=== PATIENT | female | born 1935 | race African-American/Black ===

== ENCOUNTER 2025-06-23 01:48 | Emergency (ER) | payer MEDICARE, SELFPAY ==
[2025-06-23] VITALS (15 sets, daily range): BP systolic 111–122; BP diastolic 62–76; PULSE 71; RESP 18; TEMP 36.8; O2SAT 96–100
[2025-06-23 02:25] LABS: Hematocrit 34.8 % (37.0-47.0); Hemoglobin 11.5 g/dL (12.0-15.0); Immature Granulocyte Percent A 0.3 % (0-0.5); Lymphocytes Absolute Auto 2.83 K/mm3 (0.9-3.2); Mean Corpuscular HGB Conc 33.0 g/dl (32-36); Mean Corpuscular Hemoglobin 28.8 pg (26-34); Mean Corpuscular Volume 87.0 fl (80-100); Nucleated Red Blood Cells Absolute Auto 0.000 K/mm3 (0.0-0.012); Nucleated Red Blood Cells Perc 0.0 % (0.0-0.2); Platelet Count Result 226 k/mm3 (150-375); Red Blood Count 4.00 M/mm3 (4.2-5.4); White Blood Count 7.2 K/mm3 (4.5-10.0)
[2025-06-23 02:39] LABS: Alanine Aminotransferase 18 U/L (6-35); Albumin Level 4.0 g/dL (3.5-5.1); Alkaline Phosphatase 105 U/L (38-126); Anion Gap 8 mmol/L (4-12); Aspartate Amino Transferase 42 U/L (14-36); Bilirubin,Total 0.7 mg/dL (0.2-1.3); Blood Urea Nitrogen 29 mg/dL (7-17); Calcium 9.8 mg/dL (8.4-10.2); Carbon Dioxide 21 mmol/L (22-30); Chloride 105 mmol/L (98-107); Estimated CRCL calculation 15 ml/min; Estimated Glomerular Filt Rate 21; Glucose 101 mg/dL (65-110); Lipase 160 U/L (23-300); Magnesium 2.2 mg/dL (1.6-2.3); Potassium 3.9 mmol/L (3.4-5.0); Sodium 134 mmol/L (137-145); Total Protein 7.9 g/dL (6.3-8.2)
--- NOTE | 2025-06-23 02:40 | ED_ITS ---
HPI - General Adult General Chief complaint: Nausea/Vomiting/Diarrhea Stated complaint: diarrhea and a rectum problem Time Seen by Provider: 06/23/25 01:49 History of Present Illness HPI narrative: Patient is an 89-year-old female who presents emergency department this evening complaining of diarrhea for the past few days. Patient states that this diarrhea has caused her to develop a rash/skin breakdown around her rectal area which has been bothering her. Patient's daughter who is present at bedside states that the patient keeps wiping with dry tissue which keeps irritating the area despite her trying to tell her to only use wet wipes. They have also been using a barrier cream. Otherwise denies any fevers or chills, denies any sick contacts at home her anyone with similar symptoms and denies any abdominal pain. Review of Systems 2 Review of Systems: All systems are reviewed and are negative unless stated otherwise in the HPI. Exam 2 Narrative: General: Alert, awake, afebrile, in no acute distress. HEENT: PERRL, no rhinorrhea, no post nasal drip, oropharynx clear. Neck: Trachea midline, no JVD, no lymphadenopathy. Cardiovascular: Regular rate and rhythm, no murmurs, rubs or gallops, no peripheral edema. Respiratory: Clear to auscultation bilaterally, no tachypnea, no wheezing, no rhonchi, no rubs, no respiratory distress. Abdomen: Soft, nontender, nondistended, no rebound, no guarding, no peritoneal signs. Rectal: Exam performed with male nurse progressive die maker revealing some mom minimal skin breakdown around the perirectal region, no ulcerations or open wounds. Musculoskeletal: No joint swelling or deformity, normal muscle tone. Skin: No rashes or petechia, no signs of infection. Psychiatric: Alert and oriented, normal behavior and judgment for situation. Neurological: Alert and oriented to person, place, and time. Follows all commands. No focal deficits, speech is clear and fluent. Course Vital Signs Vital signs: Vital Signs Pulse Oximetry 100 06/23/25 01:59 Temperature 98.3 F 06/23/25 02:26 Pulse Rate 71 06/23/25 02:26 Respiratory Rate 18 06/23/25 02:26 Blood Pressure 113/76 06/23/25 02:26 Pulse Oximetry 100 06/23/25 02:26 Oxygen Delivery Room Air 06/23/25 02:26 Medical Decision Making MDM Narrative Medical decision making narrative: The patient was evaluated by myself in the emergency department. History is obtained from patient who is an independent historian and physical exam was performed. External medical records were reviewed at this time. IV was established and pertinent tests were ordered. Patient was administered 1 L IV fluid bolus with normal saline. Laboratory results obtained revealing a creatinine of 2.1 otherwise unremarkable. Unsure of what patient's baseline is as there are no previous blood work available for comparison. Differential diagnosis considerations include dehydration, electrolyte derangements, acute viral syndrome, gastroenteritis, acute kidney injury. Comorbidities impacting this visit include none. I have evaluated and discussed social determinants of health with the patient that could potentially impact subsequent diagnosis and treatment plans. On repeat assessment of the patient, reevaluation revealed that the patient is doing well and is in no acute distress. Patient symptoms have improved since she arrived to our emergency department. Repeat vital signs were all reviewed and noted to be stable. Differential diagnosis and treatment plan were discussed with the patient at bedside. Patient agrees with discussion and after shared medical decision making agrees with discharge. All questions were answered to the patient's satisfaction. Patient will follow up with her PCP in 3-5 days. Patient was provided with strict return precautions and instructed to return to the emergency department if any new or worsening symptoms develop. The patient was discharged in stable condition. Vital Signs Vital Signs: Vital Signs Pulse Oximetry 100 06/23/25 01:59 Temperature 98.3 F 06/23/25 02:26 Pulse Rate 71 06/23/25 02:26 Respiratory Rate 18 06/23/25 02:26 Blood Pressure 113/76 06/23/25 02:26 Pulse Oximetry 100 06/23/25 02:26 Oxygen Delivery Room Air 06/23/25 02:26 Lab Data 06/23/25 02:20 06/23/25 02:20 Labs: Lab Results 06/23/25 Range/Units 02:20 WBC 7.2 (4.5-10.0) K/mm3 RBC 4.00 L (4.2-5.4) M/mm3 Hgb 11.5 L (12.0-15.0) g/dL Hct 34.8 L (37.0-47.0) % MCV 87.0 (80-100) fl MCH 28.8 (26-34) pg MCHC 33.0 (32-36) g/dl RDW 15.9 H (11.5-14.5) % Plt Count 226 (150-375) k/mm3 MPV 10.1 (7.4-10.4) fl Immature Gran % (Auto) 0.3 (0-0.5) % Neut % (Auto) 48.6 (45.5-73.1) % Lymph % (Auto) 39.1 (18.3-44.2) % Hickman % (Auto) 6.5 (2.6-8.5) % Eos % (Auto) 4.8 H (0-4.4) % Baso % (Auto) 0.7 (0.2-1.2) % Lymph # (Auto) 2.83 (0.9-3.2) K/mm3 Hickman # (Auto) 0.5 (0.1-0.6) K/mm3 Eos # (Auto) 0.4 H (0-0.3) K/mm3 Baso # (Auto) 0.1 (0.0-0.1) K/mm3 Abs Immat Gran (auto) 0.02 (0.00-0.031) K/mm3 Absolute Neuts (auto) 3.5 (1.3-6.7) K/mm3 Absolute Nucleated RBC 0.000 (0.0-0.012) K/mm3 Nucleated RBC % 0.0 (0.0-0.2) % Sodium 134 L (137-145) mmol/L Potassium 3.9 (3.4-5.0) mmol/L Chloride 105 (98-107) mmol/L Carbon Dioxide 21 L (22-30) mmol/L Anion Gap 8 (4-12) mmol/L BUN 29 H (7-17) mg/dL Creatinine 2.18 H (0.7-1.0) mg/dL Estim Creat Clear Calc 15 ml/min Estimated GFR 21 L (59 - ) Glucose 101 (65-110) mg/dL Calcium 9.8 (8.4-10.2) mg/dL Magnesium 2.2 (1.6-2.3) mg/dL Total Bilirubin 0.7 (0.2-1.3) mg/dL AST 42 H (14-36) U/L ALT 18 (6-35) U/L Alkaline Phosphatase 105 (38-126) U/L Total Protein 7.9 (6.3-8.2) g/dL Albumin 4.0 (3.5-5.1) g/dL Lipase 160 (23-300) U/L Discharge Plan Discharge Clinical Impression: Diarrhea Patient Disposition: Home Condition: Improved Instructions: Antibiotic Form, Acute Diarrhea (ED) Additional Instructions: Please follow-up with your family doctor within the next 3-5 days. Return emergency department for new or worsening symptoms develop. Patient Language: Prydeinig Follow-up/Referrals: PHYSICIAN NOT ON STAFF,NONSTAFF [Primary Care Provider] - 3 Days Time of Disposition: 03:09
[2025-06-23] MEDS: SODIUM CHLORIDE 0.9% IV 1,000 ML 999 ML IV CONT (02:59)
== END 2025-06-23 04:04 | disposition home or self-care (01) ==
LOC: ANHED 03:15
PROVIDERS: Emergency Provider Emergency Medicine
DX: R19.7 Diarrhea, unspecified (principal)
CPT/HCPCS: 36415; 80053; 83690; 83735; 85025; 96360; 99283; J7030